=== PATIENT | male | born 1975 | race Caucasian/White ===

== ENCOUNTER 2019-12-16 15:46 | Emergency (ER) | payer SELFPAY ==
[~2019-12-16] VITALS: Ht 167.6 cm; Wt 92.1 kg
[2019-12-16 17:32] VITALS: BP 139/86
[2019-12-16] MEDS ORDERED: TETANUS-DIPTH-ACEL PERTUSSIS 0.5ML SYRG IM ONE (17:45)
== END 2019-12-16 17:56 | disposition home or self-care (01) ==
LOC: ER 15:47
DX: S61.217A Laceration without foreign body of left little finger without damage to nail, initial encounter (principal); W25.XXXA Contact with sharp glass, initial encounter; Y93.89 Activity, other specified; Y99.8 Other external cause status; Y92.89 Other specified places as the place of occurrence of the external cause
CPT/HCPCS: 12002